=== PATIENT | male | born 1935 | race Caucasian/White ===

== ENCOUNTER 2016-03-03 07:27 | Outpatient (CLI) | payer MEDICARE ==
[2016-03-03 08:00] LABS: Hemoglobin A1c 6.7 % (4.0-6.0)
[2016-03-03 08:12] LABS: ALT (SGPT) 41 U/L (0-55); AST (SGOT) 29 U/L (5-34); Albumin 3.9 g/dL (3.4-4.8); Alkaline Phosphatase 60 U/L (40-150); Anion Gap 20 mmol/L (10-20); BUN (Urea Nitrogen) 45 mg/dL (8.4-25.7); Bilirubin, Direct 0.1 mg/dL (0.1-0.3); Bilirubin, Total Less than 0.3 mg/dL (0.2-1.2); Calc. Creatinine Clearance 0 mL/min (70-130); Calcium 9.6 mg/dL (7.8-10.44); Carbon Dioxide 24 mmol/L (23-31); Cardiac Risk 2.7 (Less than 4.5); Chloride 105 mmol/L (98-107); Cholesterol 114 mg/dL (< 200 Desired); Estimated GFR-MDRD 30; Glucose 241 mg/dL (83-110); HDL Cholesterol 43 mg/dL (>60 Neg Risk); LDL Cholesterol, Calculated 46 mg/dL; Potassium 4.1 mmol/L (3.5-5.1); Protein, Total 6.4 g/dL (5.8-8.1); Sodium 145 mmol/L (136-145); Triglycerides 124 mg/dL (Less than 150); Uric Acid 5.4 mg/dL (3.5-7.2)
[2016-03-03 08:49] LABS: White Blood Cell (WBC) Count 11.3 thou/uL (4.8-10.8)
[2016-03-03 08:52] LABS: Mean Corpuscular HGB CONC 31.6 g/dL (32.0-36.0); Mean Corpuscular Hemoglobin 33.6 pg (27.0-31.0); Mean Platelet Volume 7.2 fL (7.4-10.4); Platelet Count 221 thou/uL (130-400); RBC Distribution Width 13.4 % (11.5-14.5); Red Blood Cell (RBC) Count 3.27 mill/uL (4.70-6.10)
[2016-03-03 08:55] LABS: Manual Diff?? NO
[2016-03-03 08:56] LABS: %Monocytes 5.5 % (0.0-10.0); %Neutrophils 80.3 % (42.0-75.0)
[2016-03-03 08:57] LABS: %Basophils 0.2 % (0.0-1.0)
[2016-03-03 08:58] LABS: #Lymphocytes 1.6 thou/uL (1.20-3.40); #Monocytes 0.6 thou/uL (0.11-0.59); #Neutrophils 9.1 thou/uL (1.40-6.50)
[2016-03-03 09:01] LABS: PLT Morphology Comment Appears Adequate
== END 2016-03-03 07:28 | disposition home or self-care (01) ==
LOC: MADLABBHPM 07:27
PROVIDERS: ATTEND Internal Medicine Gastroenterology
DX: E78.00 Pure hypercholesterolemia, unspecified (principal); K92.2 Gastrointestinal hemorrhage, unspecified; E11.9 Type 2 diabetes mellitus without complications; M10.9 Gout, unspecified
CPT/HCPCS: 36415; 80048; 80061; 80076; 83036; 84550; 85025

== ENCOUNTER 2016-03-10 09:21 | Outpatient (CLI) | payer MEDICARE ==
--- NOTE | 2016-03-10 09:40 | RAD ---
PA AND LATERAL OF THE CHEST: INDICATION: COPD exacerbation. FINDINGS: The lungs are hyperinflated but clear. There is a loop recorder overlying the left chest wall. No pleural effusion or pneumothorax evident. Osseous structures appear unchanged from comparison of . IMPRESSION: Hyperinflation without evidence of acute infiltrate. POS: [facility]
== END 2016-03-10 09:22 | disposition home or self-care (01) ==
LOC: MADRAD 09:21
PROVIDERS: ATTEND Family Medicine
DX: J44.1 Chronic obstructive pulmonary disease with (acute) exacerbation (principal)
CPT/HCPCS: 71020

== ENCOUNTER 2016-04-16 07:41 | Outpatient (CLI) | payer MEDICARE ==
[2016-04-16 08:11] LABS: Anion Gap 16 mmol/L (10-20); BUN (Urea Nitrogen) 26 mg/dL (8.4-25.7); Calc. Creatinine Clearance 0 mL/min (70-130); Calcium 9.2 mg/dL (7.8-10.44); Carbon Dioxide 23 mmol/L (23-31); Chloride 106 mmol/L (98-107); Estimated GFR-MDRD 43; Glucose 138 mg/dL (83-110); Potassium 3.9 mmol/L (3.5-5.1); Sodium 141 mmol/L (136-145)
[2016-04-16 08:16] LABS: #Basophils 0.1 thou/uL (0.0-0.2); #Eosinphils 0.2 thou/uL (0.0-0.7); #Lymphocytes 2.3 thou/uL (1.20-3.40); #Monocytes 0.5 thou/uL (0.11-0.59); #Neutrophils 2.4 thou/uL (1.40-6.50); %Eosinophils 4.2 % (0.0-10.0); %Lymphocytes 42.2 % (21.0-51.0); %Monocytes 9.4 % (0.0-10.0); %Neutrophils 43.1 % (42.0-75.0); Hemoglobin 12.4 g/dL (14.0-18.0); Manual Diff?? YES; Mean Corpuscular HGB CONC 32.5 g/dL (32.0-36.0); Mean Corpuscular Volume 104.6 fl (80.0-94.0); Mean Platelet Volume 6.1 fL (7.4-10.4); Platelet Count 312 thou/uL (130-400); RBC Distribution Width 15.4 % (11.5-14.5); Red Blood Cell (RBC) Count 3.64 mill/uL (4.70-6.10); White Blood Cell (WBC) Count 5.5 thou/uL (4.8-10.8)
[2016-04-20 14:18] LABS: Lead-Whole Blood 1 ug/dL (0-19)
== END 2016-04-16 07:42 ==
LOC: MADLABBHPM 07:41
PROVIDERS: ATTEND Family Medicine
DX: T75.89XA Other specified effects of external causes, initial encounter (principal); N18.3 Chronic kidney disease, stage 3 (moderate); K92.2 Gastrointestinal hemorrhage, unspecified
CPT/HCPCS: 36415; 80048; 83655; 85025

== ENCOUNTER 2016-05-14 07:49 | Outpatient (CLI) | payer MEDICARE ==
[2016-05-14 08:20] LABS: Hemoglobin A1c 6.4 % (4.0-6.0)
[2016-05-14 09:30] LABS: Anion Gap 16 mmol/L (10-20); BUN (Urea Nitrogen) 31 mg/dL (8.4-25.7); Calc. Creatinine Clearance 0 mL/min (70-130); Calcium 9.4 mg/dL (7.8-10.44); Carbon Dioxide 24 mmol/L (23-31); Chloride 105 mmol/L (98-107); Estimated GFR-MDRD 36; Glucose 131 mg/dL (83-110); Potassium 4.5 mmol/L (3.5-5.1); Sodium 140 mmol/L (136-145)
== END 2016-05-14 07:50 | disposition home or self-care (01) ==
LOC: MADLABBHPM 07:49
PROVIDERS: ATTEND Family Medicine
DX: E11.9 Type 2 diabetes mellitus without complications (principal)
CPT/HCPCS: 36415; 80048; 83036

== ENCOUNTER 2016-05-19 11:10 | Outpatient (CLI) | payer MEDICARE ==
[2016-05-19 11:54] LABS: #Basophils 0.1 thou/uL (0.0-0.2); #Eosinphils 0.3 thou/uL (0.0-0.7); #Lymphocytes 2.1 thou/uL (1.20-3.40); #Monocytes 0.8 thou/uL (0.11-0.59); #Neutrophils 3.5 thou/uL (1.40-6.50); %Eosinophils 3.8 % (0.0-10.0); %Lymphocytes 31.1 % (21.0-51.0); %Monocytes 12.1 % (0.0-10.0); %Neutrophils 52.1 % (42.0-75.0); Anisocytosis SLIGHT = 6-15 cells (100X) (0-5/hpf); Hemoglobin 11.9 g/dL (14.0-18.0); MDiff Complete? YES; Mean Corpuscular HGB CONC 32.7 g/dL (32.0-36.0); Mean Corpuscular Hemoglobin 34.6 pg (27.0-31.0); Mean Platelet Volume 6.8 fL (7.4-10.4); PLT Morphology Comment Appears Adequate; Platelet Count 195 thou/uL (130-400); RBC Distribution Width 14.6 % (11.5-14.5); Red Blood Cell (RBC) Count 3.43 mill/uL (4.70-6.10); White Blood Cell (WBC) Count 6.6 thou/uL (4.8-10.8)
== END 2016-05-19 11:11 | disposition home or self-care (01) ==
LOC: MADLABBHPM 11:10
PROVIDERS: ATTEND Family Medicine
DX: E11.9 Type 2 diabetes mellitus without complications (principal); K92.2 Gastrointestinal hemorrhage, unspecified; N18.3 Chronic kidney disease, stage 3 (moderate); M10.9 Gout, unspecified; E89.0 Postprocedural hypothyroidism
CPT/HCPCS: 36415; 85025

== ENCOUNTER 2016-06-12 07:57 | Outpatient (CLI) | payer MEDICARE ==
[2016-06-12 08:49] LABS: Hemoglobin 12.4 g/dL (14.0-18.0)
== END 2016-06-12 07:58 | disposition home or self-care (01) ==
LOC: MADLAB 07:57
PROVIDERS: ATTEND Internal Medicine Gastroenterology
DX: D50.9 Iron deficiency anemia, unspecified (principal)
CPT/HCPCS: 36415; 85014; 85018

== ENCOUNTER 2016-06-19 08:25 | Outpatient (CLI) | payer MEDICARE ==
[2016-06-19 09:22] LABS: ALT (SGPT) 13 U/L (0-55); AST (SGOT) 16 U/L (5-34); Albumin 4.1 g/dL (3.4-4.8); Alkaline Phosphatase 36 U/L (40-150); Anion Gap 14 mmol/L (10-20); BUN (Urea Nitrogen) 29 mg/dL (8.4-25.7); Bilirubin, Total 0.3 mg/dL (0.2-1.2); Calc. Creatinine Clearance 0 mL/min (70-130); Carbon Dioxide 24 mmol/L (23-31); Cardiac Risk 3.3 (Less than 4.5); Chloride 109 mmol/L (98-107); Cholesterol 105 mg/dL (< 200 Desired); Estimated GFR-MDRD 37; Globulin 2.1 g/dL (2.4-3.5); Glucose 111 mg/dL (83-110); HDL Cholesterol 32 mg/dL (>60 Neg Risk); LDL Cholesterol, Calculated 52 mg/dL; Potassium 4.6 mmol/L (3.5-5.1); Protein, Total 6.2 g/dL (5.8-8.1); Sodium 142 mmol/L (136-145); Triglycerides 107 mg/dL (Less than 150)
== END 2016-06-19 08:26 | disposition home or self-care (01) ==
LOC: MADLAB 08:25
PROVIDERS: ATTEND Internal Medicine Cardiovascular Disease
DX: E78.00 Pure hypercholesterolemia, unspecified (principal); E03.9 Hypothyroidism, unspecified
CPT/HCPCS: 36415; 80053; 80061; 84443

== ENCOUNTER 2016-06-24 07:32 | Outpatient (CLI) | payer MEDICARE ==
[2016-06-24 10:23] LABS: #Basophils 0.1 thou/uL (0.0-0.2); #Eosinphils 0.2 thou/uL (0.0-0.7); #Lymphocytes 1.8 thou/uL (1.20-3.40); #Monocytes 0.6 thou/uL (0.11-0.59); #Neutrophils 2.6 thou/uL (1.40-6.50); %Basophils 1.2 % (0.0-1.0); %Eosinophils 3.3 % (0.0-10.0); %Lymphocytes 34.1 % (21.0-51.0); %Monocytes 11.6 % (0.0-10.0); %Neutrophils 49.8 % (42.0-75.0); Hemoglobin 12.5 g/dL (14.0-18.0); Mean Corpuscular HGB CONC 33.3 g/dL (32.0-36.0); Mean Corpuscular Hemoglobin 35.1 pg (27.0-31.0); Mean Platelet Volume 7.1 fL (7.4-10.4); Platelet Count 186 thou/uL (130-400); RBC Distribution Width 13.2 % (11.5-14.5); Red Blood Cell (RBC) Count 3.57 mill/uL (4.70-6.10); White Blood Cell (WBC) Count 5.2 thou/uL (4.8-10.8)
[2016-06-24 10:35] LABS: Anisocytosis SLIGHT = 6-15 cells (100X) (0-5/hpf)
[2016-06-24 10:36] LABS: PLT Morphology Comment Appears Adequate
[2016-06-24 10:58] LABS: MDiff Complete? YES
[2016-06-24 17:49] LABS: Folate (Folic Acid) 15.1 ng/mL (7.0-31.4)
== END 2016-06-24 07:33 | disposition home or self-care (01) ==
LOC: MADLAB 07:32
PROVIDERS: ATTEND Internal Medicine
DX: D64.9 Anemia, unspecified (principal)
CPT/HCPCS: 36415; 82607; 82746; 85025; 86340

== ENCOUNTER 2016-07-10 07:10 | Outpatient (CLI) | payer MEDICARE ==
[2016-07-10 08:34] LABS: Hemoglobin A1c 5.3 % (4.0-6.0)
[2016-07-10 08:36] LABS: ALT (SGPT) 15 U/L (8-55); AST (SGOT) 17 U/L (5-34); Albumin 4.1 g/dL (3.4-4.8); Alkaline Phosphatase 38 U/L (40-150); Anion Gap 14 mmol/L (10-20); BUN (Urea Nitrogen) 48 mg/dL (8.4-25.7); Bilirubin, Total 0.3 mg/dL (0.2-1.2); Calc. Creatinine Clearance 0 mL/min (70-130); Calcium 9.1 mg/dL (7.8-10.44); Carbon Dioxide 25 mmol/L (23-31); Cardiac Risk 3.5 (Less than 4.5); Chloride 109 mmol/L (98-107); Cholesterol 110 mg/dl (< 200 Desired); Estimated GFR-MDRD 32; Globulin 2.3 g/dL (2.4-3.5); Glucose 120 mg/dL (83-110); HDL Cholesterol 31 mg/dL (>60 Neg Risk); LDL Cholesterol, Calculated 55 mg/dL; Potassium 4.6 mmol/L (3.5-5.1); Protein, Total 6.4 g/dL (5.8-8.1); Sodium 143 mmol/L (136-145); Triglycerides 119 mg/dL (Less than 150)
[2016-07-10 08:48] LABS: Free T4 (Free Thyroxine) 0.77 ng/dL (0.70-1.48); Thyroid Stimulating Hormone 10.5895 uIU/mL (0.35-4.94)
[2016-07-10 17:05] LABS: Creatinine, Urine 86.27 mg/dL (63-166); Microalbumin Urine Less than 1.0 mg/dL (0.5-50.0); Microalbumin/Creat Ratio 11.6 mg/g (Less than 30)
== END 2016-07-10 07:11 ==
LOC: MADLAB 07:10
PROVIDERS: ATTEND Internal Medicine
DX: E03.9 Hypothyroidism, unspecified (principal); E11.9 Type 2 diabetes mellitus without complications
CPT/HCPCS: 36415; 80053; 80061; 82043; 83036; 84439; 84443

== ENCOUNTER 2016-07-23 07:32 | Outpatient (CLI) | payer MEDICARE ==
[2016-07-23 08:23] LABS: Anion Gap 13 mmol/L (10-20); BUN (Urea Nitrogen) 49 mg/dL (8.4-25.7); Calc. Creatinine Clearance 0 mL/min (70-130); Calcium 9.1 mg/dL (7.8-10.44); Carbon Dioxide 25 mmol/L (23-31); Chloride 109 mmol/L (98-107); Estimated GFR-MDRD 31; Glucose 120 mg/dL (83-110); Potassium 4.7 mmol/L (3.5-5.1); Sodium 142 mmol/L (136-145)
[2016-07-23 19:41] LABS: Creatinine, Urine 119.51 mg/dL (63-166); Protein, Urine Random Quant Less than 10 mg/dL
== END 2016-07-23 07:33 | disposition home or self-care (01) ==
LOC: MADLAB 07:32
PROVIDERS: ATTEND Internal Medicine Nephrology
DX: E11.22 Type 2 diabetes mellitus with diabetic chronic kidney disease (principal); I12.9 Hypertensive chronic kidney disease with stage 1 through stage 4 chronic kidney disease, or unspecified chronic kidney disease; N18.3 Chronic kidney disease, stage 3 (moderate)
CPT/HCPCS: 36415; 80048; 82570; 83970; 84156

== ENCOUNTER 2016-07-27 08:00 | Outpatient (CLI) | payer MEDICARE ==
--- NOTE | 2016-07-27 09:29 | ULT ---
RENAL ULTRASOUND 07/27/2016 HISTORY: Chronic kidney disease. History of renal cyst. COMPARISON: 04/16/2014 TECHNIQUE: Multiplanar lieberman scale sonographic imaging of the kidneys and urinary bladder obtained. FINDINGS: The right kidney measures 8.6 x 4.4 x 3.7 cm. The left kidney measures 8.9 x 5.3 x 5.5 cm. There i s cortical thinning and increased echogenicity of both kidneys, evidence of renal medical disease, c onsistent with the provided history. There is no solid renal mass or evidence of hydronephrosis on either side. There is a cyst within the mid pole of the left kidney, measuring 4.5 x 3.3 cm, enlarg ed from the prior study, at which time it measured approximately 2.7 x 3.9 cm. No solid components or internal blood flow noted. Imaging of the urinary bladder is grossly unremarkable, with a urinar y bladder post void volume of approximately 4.4 cm. IMPRESSION: 1. Left renal cyst. 2. Small kidneys with increased echogenicity and cortical thinning, suggesting renal medical diseas e. POS: [facility]
== END 2016-07-27 08:01 | disposition home or self-care (01) ==
LOC: MADULT 08:00
PROVIDERS: ATTEND Internal Medicine Nephrology
DX: N18.3 Chronic kidney disease, stage 3 (moderate) (principal); N28.1 Cyst of kidney, acquired
CPT/HCPCS: 76770

== ENCOUNTER 2016-08-13 07:25 | Outpatient (CLI) | payer MEDICARE ==
[2016-08-13 08:22] LABS: Anion Gap 14 mmol/L (10-20); BUN (Urea Nitrogen) 40 mg/dL (8.4-25.7); Calc. Creatinine Clearance 0 mL/min (70-130); Calcium 9.1 mg/dL (7.8-10.44); Carbon Dioxide 23 mmol/L (23-31); Chloride 107 mmol/L (98-107); Estimated GFR-MDRD 36; Glucose 129 mg/dL (83-110); Potassium 4.8 mmol/L (3.5-5.1); Sodium 139 mmol/L (136-145)
== END 2016-08-13 07:26 | disposition home or self-care (01) ==
LOC: MADLAB 07:25
PROVIDERS: ATTEND Internal Medicine Nephrology
DX: N18.3 Chronic kidney disease, stage 3 (moderate) (principal)
CPT/HCPCS: 36415; 80048

== ENCOUNTER 2016-08-20 07:53 | Outpatient (CLI) | payer MEDICARE ==
[2016-08-20 08:22] LABS: Hemoglobin A1c 5.5 % (4.0-6.0)
[2016-08-20 08:44] LABS: ALT (SGPT) 11 U/L (8-55); AST (SGOT) 12 U/L (5-34); Albumin 3.8 g/dL (3.4-4.8); Alkaline Phosphatase 41 U/L (40-150); Anion Gap 17 mmol/L (10-20); BUN (Urea Nitrogen) 34 mg/dL (8.4-25.7); Bilirubin, Direct 0.2 mg/dL (0.1-0.3); Bilirubin, Total 0.4 mg/dL (0.2-1.2); Calc. Creatinine Clearance 0 mL/min (70-130); Calcium 9.2 mg/dL (7.8-10.44); Carbon Dioxide 21 mmol/L (23-31); Cardiac Risk 3.8 (Less than 4.5); Chloride 109 mmol/L (98-107); Cholesterol 106 mg/dl (< 200 Desired); Estimated GFR-MDRD 38; Glucose 128 mg/dL (83-110); HDL Cholesterol 28 mg/dL (>60 Neg Risk); LDL Cholesterol, Calculated 55 mg/dL; Potassium 4.6 mmol/L (3.5-5.1); Protein, Total 6.4 g/dL (5.8-8.1); Sodium 142 mmol/L (136-145); Triglycerides 113 mg/dL (Less than 150); Uric Acid 8.6 mg/dL (3.5-7.2)
[2016-08-20 10:18] LABS: #Basophils 0.1 thou/uL (0.0-0.2); #Eosinphils 0.1 thou/uL (0.0-0.7); #Lymphocytes 2.1 thou/uL (1.20-3.40); #Monocytes 0.6 thou/uL (0.11-0.59); #Neutrophils 3.3 thou/uL (1.40-6.50); %Eosinophils 2.3 % (0.0-10.0); %Lymphocytes 33.7 % (21.0-51.0); %Monocytes 10.1 % (0.0-10.0); Hemoglobin 12.7 g/dL (14.0-18.0); Mean Corpuscular HGB CONC 32.6 g/dL (32.0-36.0); Mean Corpuscular Hemoglobin 33.9 pg (27.0-31.0); Mean Corpuscular Volume 104.1 fl (80.0-94.0); Mean Platelet Volume 7.3 fL (7.4-10.4); Platelet Count 233 thou/uL (130-400); RBC Distribution Width 11.8 % (11.5-14.5); Red Blood Cell (RBC) Count 3.74 mill/uL (4.70-6.10); White Blood Cell (WBC) Count 6.2 thou/uL (4.8-10.8)
[2016-08-20 11:13] LABS: Anisocytosis SLIGHT = 6-15 cells (100X) (0-5/hpf); PLT Morphology Comment Appears Adequate
[2016-08-20 11:14] LABS: Macrocytosis SLIGHT = 6-15 cells (100X) (0-5/hpf)
[2016-08-20 17:39] LABS: Creatinine, Urine 104.15 mg/dL (63-166); Microalbumin Urine Less than 1.0 mg/dL (0.5-50.0); Microalbumin/Creat Ratio 9.6 mg/g (Less than 30)
== END 2016-08-20 07:54 | disposition home or self-care (01) ==
LOC: MADLABBHPM 07:53
PROVIDERS: ATTEND Family Medicine
DX: E11.22 Type 2 diabetes mellitus with diabetic chronic kidney disease (principal); N18.3 Chronic kidney disease, stage 3 (moderate); K92.2 Gastrointestinal hemorrhage, unspecified; E89.0 Postprocedural hypothyroidism; M10.9 Gout, unspecified
CPT/HCPCS: 36415; 80048; 80061; 80076; 82043; 83036; 84443; 84550; 85025

== ENCOUNTER 2018-07-09 21:09 | Emergency (ER) | payer MEDICARE ==
[2018-07-09] MEDS ORDERED: Erythromycin Base 0.5% Ophth Oint 3.5 gm Tube ONE (21:43)
[2018-07-09] MEDS ORDERED: HYDROcodone/Acetaminophen 5/325 mg Tablet ONE (21:43)
== END 2018-07-09 22:30 | disposition home or self-care (01) ==
LOC: MADERS 21:09
DX: S05.02XA Injury of conjunctiva and corneal abrasion without foreign body, left eye, initial encounter (principal); E03.9 Hypothyroidism, unspecified; K21.9 Gastro-esophageal reflux disease without esophagitis; I10 Essential (primary) hypertension; Z79.899 Other long term (current) drug therapy; Z79.82 Long term (current) use of aspirin; X58.XXXA Exposure to other specified factors, initial encounter
CPT/HCPCS: 99283

== ENCOUNTER 2018-12-22 17:51 | Emergency (ER) | payer MEDICARE ==
[2018-12-22 18:57] LABS: #Basophils 0.1 thou/uL (0.0-0.2); #Eosinphils 0.1 thou/uL (0.0-0.7); #Lymphocytes 1.7 thou/uL (1.20-3.40); #Monocytes 0.6 thou/uL (0.11-0.59); #Neutrophils 5.3 thou/uL (1.40-6.50); %Basophils 0.9 % (0.0-1.0); %Eosinophils 1.4 % (0.0-10.0); %Lymphocytes 22.1 % (21.0-51.0); %Monocytes 7.9 % (0.0-10.0); %Neutrophils 67.7 % (42.0-75.0); Hemoglobin 13.8 g/dL (14.0-18.0); Mean Corpuscular HGB CONC 31.8 g/dL (32.0-36.0); Mean Corpuscular Hemoglobin 32.2 pg (27.0-31.0); Mean Corpuscular Volume 101.3 fL (78.0-98.0); Mean Platelet Volume 8.2 fL (7.4-10.4); Platelet Count 195 thou/uL (130-400); RBC Distribution Width 13.2 % (11.5-14.5); Red Blood Cell (RBC) Count 4.29 mill/uL (4.70-6.10); White Blood Cell (WBC) Count 7.8 thou/uL (4.8-10.8)
[2018-12-22 19:00] LABS: INR-International Normal Ratio 0.9; Prothrombin Time 12.6 SEC (12.0-14.7)
[2018-12-22 19:11] LABS: ALT (SGPT) 31 U/L (8-55); AST (SGOT) 27 U/L (5-34); Albumin 4.7 g/dL (3.4-4.8); Alkaline Phosphatase 57 U/L (40-110); Anion Gap 17 mmol/L (10-20); BUN (Urea Nitrogen) 32 mg/dL (8.4-25.7); Bilirubin, Total 0.3 mg/dL (0.2-1.2); Calc. Creatinine Clearance 0 mL/min (70-130); Calcium 9.5 mg/dL (7.8-10.44); Carbon Dioxide 29 mmol/L (23-31); Chloride 102 mmol/L (98-107); Estimated GFR-MDRD 34; Globulin 2.9 g/dL (2.4-3.5); Glucose 133 mg/dL (83-110); Protein, Total 7.6 g/dL (5.8-8.1); Sodium 145 mmol/L (136-145)
--- NOTE | 2018-12-22 20:17 | CT ---
CT OF THE CHEST, ABDOMEN AND PELVIS WITHOUT IV CONTRAST INDICATION: Fall with dizziness COMPARISON: Prior CT the thorax dated June 20, 2015 FINDINGS: The lack of IV contrast limits evaluation for acute solid organ injury and vascular injury. CHEST: Lungs:Mild emphysema. No acute consolidation, pleural effusion or pneumothorax. There is some subsegm ental volume loss involving both lower lobes. Heart and great vessels:There are moderate vascular calcifications seen involving the visualized vasc ulature. Pleural space: No pneumothorax or effusion. Additional findings: ABDOMEN: Liver:Normal appearing. Spleen:Normal appearing. Pancreas:Normal appearing. Adrenal Glands:Normal appearing. Kidneys:There is a 5.2 cm left mid renal cyst. There is a 2 mm stone involving the upper pole the rig ht kidney. Aorta:There are moderate vascular calcifications seen involving the visualized vasculature. Additional findings: No free fluid or free air. PELVIS: Bowel:There is a moderate amount of retained stool within colon. Bladder:Normal appearing. Reproductive structures:Normal appearing. Rectum and perirectal soft tissues:Normal appearing. Additional findings: No free fluid or free air. OSSEOUS STRUCTURES: There are nondisplaced was posterior lateral right eighth and ninth rib fractures. There is scattered degenerative and osteoarthritic changes. IMPRESSION: 1. Nondisplaced posterior lateral right eighth and ninth rib fractures 2. Additional nonemergent findings as above.
[2018-12-22] MEDS ORDERED: HYDROcodone/Acetaminophen 5/325 mg Tablet ONE (20:47)
[2018-12-22] MEDS ORDERED: Ondansetron PF 4 MG/2 ML Vial ONE (21:43)
[2018-12-22] MEDS ORDERED: Morphine 4 MG/ML VIAL ONE (21:43)
== END 2018-12-22 21:04 | disposition home or self-care (01) ==
LOC: MADERS 17:51
DX: S22.41XA Multiple fractures of ribs, right side, initial encounter for closed fracture (principal); E03.9 Hypothyroidism, unspecified; K21.9 Gastro-esophageal reflux disease without esophagitis; I10 Essential (primary) hypertension; Z79.82 Long term (current) use of aspirin; Z79.899 Other long term (current) drug therapy; W01.0XXA Fall on same level from slipping, tripping and stumbling without subsequent striking against object, initial encounter
CPT/HCPCS: 71250; 74177; 80053; 85025; 85610; J2270; J2405

== ENCOUNTER 2022-04-20 15:48 | Outpatient (CLI) | payer MEDICARE | END 2022-04-20 15:49 | disposition home or self-care (01) | LOC: MADRAD 15:48 | PROVIDERS: ATTEND Internal Medicine | DX: J45.50 Severe persistent asthma, uncomplicated (principal); J30.9 Allergic rhinitis, unspecified | CPT/HCPCS: 70220; 71046 ==